=== PATIENT | male | born 1965 | race Caucasian/White ===

== ENCOUNTER → 2016-07-14 | Outpatient (CLI) | payer BC ==
--- NOTE | 2016-07-14 17:36 | RADRPT ---
PROCEDURE: XR Knees. CLINICAL INDICATION: Bilateral knee pain. TECHNIQUE: Total of eight views. Weightbearing frontal, oblique, and lateral views of the both kn ees. Patellar views of both knees. COMPARISON: 03/04/2013. FINDINGS: There is no fracture or dislocation. The soft tissues are normal. Articular surfaces are intact. There is no lytic or blastic lesion. There is no radiopaque foreign body. IMPRESSION: 1. Unremarkable images of both knees. 2. No change from 03/04/2013. RPTAT: QQ .Duncan Rossi MD, MD Date Time Electronically viewed and signed by .Duncan Rossi MD, MD on 07/14/2016 17:36 .R/
== END | disposition home or self-care (01) ==
LOC: HKI 14:48
PROVIDERS: ATTEND Orthopaedic Surgery
DX: M22.41 Chondromalacia patellae, right knee (principal); M22.42 Chondromalacia patellae, left knee; M25.561 Pain in right knee; M25.562 Pain in left knee
CPT/HCPCS: 73564; G0463